=== PATIENT | male | born 1995 | race Hispanic/Latino ===

== ENCOUNTER 2023-11-03 05:41 | Emergency (ER) | payer SELFPAY ==
[2023-11-03] MEDS ORDERED: Acetaminophen 500 MG TAB ONE (06:00)
[2023-11-03] MEDS ORDERED: Ketorolac Tromethamine 30 MG/ML VIAL ONE (06:00)
[2023-11-03 07:09] LABS: SARS-CoV-2 NAA Rapid Test Not Detected (NotDetected)
== END 2023-11-03 08:33 | disposition home or self-care (01) ==
LOC: ERS 05:41
DX: J10.1 Influenza due to other identified influenza virus with other respiratory manifestations (principal); F17.210 Nicotine dependence, cigarettes, uncomplicated; Z20.822 Contact with and (suspected) exposure to COVID-19
CPT/HCPCS: 71046; 93005; 96361; 96374; J1885